=== PATIENT | male | born 1945 | race Caucasian/White ===

== ENCOUNTER 2018-07-22 16:56 | Emergency (ER) | payer MEDICARE, OTHER ==
[2018-07-22] MEDS ORDERED: Diazepam 5 MG TAB ONE (17:25)
[2018-07-22] MEDS ORDERED: Ketorolac Tromethamine 60 MG/2 ML VIAL ONE (17:26)
[2018-07-22] MEDS ORDERED: Bupivacaine PF 0.5% 30 ML VIAL ONE (18:54)
== END 2018-07-22 20:23 | disposition home or self-care (01) ==
LOC: MADERS 16:56
DX: M62.830 Muscle spasm of back (principal); J44.9 Chronic obstructive pulmonary disease, unspecified; K21.9 Gastro-esophageal reflux disease without esophagitis; E11.9 Type 2 diabetes mellitus without complications; E78.5 Hyperlipidemia, unspecified; I10 Essential (primary) hypertension; Z79.899 Other long term (current) drug therapy
CPT/HCPCS: 20552; 96372; J1885; S0020